=== PATIENT | male | born 1960 | race Caucasian/White ===

== ENCOUNTER 2024-07-24 04:04 | Emergency (ER) | payer OTHER, SELFPAY ==
[2024-07-24 04:06] VITALS: BP 120/72
[2024-07-24 04:15] VITALS: BP 131/84
[2024-07-24] MEDS: TORADOL 15 MG IM (04:56)
[2024-07-24 05:00] VITALS: BP 122/104
[2024-07-24 05:44] LABS: Body Fluid Glucose 142 mg/dl
[2024-07-24 06:00] VITALS: BP 129/67
[2024-07-24 06:18] LABS: Body Fluid Second Tech KB
--- NOTE | 2024-07-24 06:30 | ED.GENMED ---
History of Present Illness
General
Chief Complaint: Musculo-Skeletal Complaint
Time Seen by Provider: 07/24/24 04:37
History of Present Illness
History of Present Illness:
63-year-old male presenting to the emergency department for left knee pain. Patient reports pain for the past several days with swelling and difficulty ambulating. He has been using his cane and walker. Denies any known trauma. Denies any fever.
Denies numbness or tingling. Denies any redness or skin changes. Has had pain in his knee in the past, however feels that this is worse. Has not tried any medications for pain. Denies additional acute medical complaints
Phy Exam
Physical Exam
Physical Exam:
General: Well-appearing, no clinical signs of dehydration, nontoxic and in no acute distress
HEENT: protecting airway
Neck: appears supple
CV: Normal heart rate
Resp: No accessory muscle use, no increased work of breathing
Abd: No distension
Extremities: No deformity to the left lower extremity. Moderate swelling at the left knee, medially and suprapatellar. Range of motion limited secondary to pain. No erythema or warmth. Distal sensation intact.
Neuro: alert, no focal neurologic deficit
: deferred
Rectal: deferred
Psych: Normal affect
Skin: Intact
Course
Orders/Labs/Results
Orders:
Orders
07/24/24 04:53
Ketorolac [Toradol] 15 mg IM NOW STA
Knee, Left 4 or More Views [CR Knee - Left 4 Or More View*] Urgent
Comment:
Reason For Exam: pain, and swelling
07/24/24 05:13
Body Fluid Cell Count Urgent
What is the Body Fluid: joint
Date Specimen was Collected: 07/24/24
Time Specimen was Collected: 05:12
Comment: with DIFF
Body Fluid Crystals Urgent
What is the Body Fluid: joint
Date Specimen was Collected: 07/24/24
Time Specimen was Collected: 05:12
Body Fluid Glucose Urgent
Fluid Source: Other
Date Specimen was Collected: 07/24/24
Time Specimen was Collected: 05:12
Fluid Culture with Gram Stain Urgent
MARY Source: Joint Fluid
Specimen Description:
Date Specimen was Collected: 07/24/24
Time Specimen was Collected: 05:12
07/24/24 06:29
Knee Immobilizer Left-Treatmen ONCE
Vital Signs
Initial and Last Documented VS:
Initial Vital Signs
Temp Pulse Resp BP Pulse Ox
98.2 F 76 22 120/72 100
07/24/24 04:06 07/24/24 04:06 07/24/24 04:06 07/24/24 04:06 07/24/24 04:06
Last Documented Vital Signs
Temp Pulse Resp BP Pulse Ox
98.2 F 74 19 129/67 96
07/24/24 04:06 07/24/24 06:04 07/24/24 06:04 07/24/24 06:00 07/24/24 05:34
MDM/Problems Addressed
MDM/Problems Addressed:
63-year-old male presenting for left knee pain. Vital signs are normal.
On exam, patient is in no acute distress. Patient does have moderate swelling to left knee, however no erythema, no warmth, no skin changes. Overall low suspicion for infectious pathology. Patient however is noting increased difficulty
ambulating. Ultimately suspect reactive effusion from arthritis. Reports he has had pain in his knee in the past. No neurovascular compromise with intact sensation and pulses. Will obtain x-ray imaging and perform arthrocentesis
06:30 - X-ray does show arthritis, no malalignment or fracture. Arthrocentesis performed without issue. Patient had been consented. Results of arthrocentesis are reassuring without present concern for septic arthritis. Do continue to suspect
inflammatory from arthritis. Toradol administered for pain. Will place in knee immobilizer for comfort and compression. Will start patient on a steroid pack for inflammation. Advised continued high-dose ibuprofen and outpatient orthopedic
follow-up. Stable for discharge. Return precautions discussed.
*Critical Care Note
Total Time (30-74mins, 75-104mins- exclusive of procedures): Not Applicable
ED Attending Note
-
Portions of this chart may have been created with voice recognition software.� Occasional wrong word or��sound alike� substitutions may have occurred due to the inherent limitations of voice recognition software.
Discharge Plan
Departure
Referrals:
Yenifer Mcelroy DO [Family Provider] -
Interventions
Interventions:
*Risk Screen - Suicide Last Done: 07/24/24 04:19
*General Assessment Last Done: 07/24/24 04:19
*Neglect/Abuse Screening Last Done: 07/24/24 04:19
*ED- Fall Risk Assessment Last Done: 07/24/24 04:19
*ED COVID-19 Vaccine History Last Done: 07/24/24 04:19
ED-Musculoskeletal Assessment Last Done: 07/24/24 04:11
Discharge Date and Time
Print Language: TAJIK
[2024-07-24 06:54] VITALS: BP 136/71
--- NOTE | 2024-07-24 07:00 | EDRN ---
the pt stated that he did not want the knee immobilizer, this RN notified Dr. Velez and the knee immobilizer was removed
[2024-07-24 15:38] LABS: Body Fluid Mononuclear 9.7 %; Body Fluid Polymorphonuclear 90.3 %; Body Fluid WBC 20150 /CUMM
== END 2024-07-24 06:57 | disposition home or self-care (01) ==
LOC: EMR 04:04
PROVIDERS: EMERGENCY PHYSICIAN Student in an Organized Health Care Education/Training Program; FAMILY PHYSICIAN Family Medicine
DX: M25.462 Effusion, left knee (principal)
CPT/HCPCS: 99284; 20610; 96372; 73564; 82945; 87015; 87070; 87205; 89051; 89060